=== PATIENT | female | born 1995 | race African-American/Black ===

== ENCOUNTER → 2017-06-09 | Outpatient (CLI) | payer OTHER ==
--- NOTE | 2017-06-09 19:31 | DIAGNOSTIC IMAGING REPORT ---
ULTRASOUND LEFT LOWER EXTREMITY VENOUS CLINICAL HISTORY: Elevated d-dimer. Left ankle pain. COMPARISON STUDY: No priors. TECHNIQUE: Real-time, grayscale, and color Doppler sonography of the deep veins of the left lower extremity was performed from the inguinal crease to the calf. Compression and augmentation were utilized. FINDINGS: There is no sonographic evidence of deep venous thrombosis identified in the left lower extremity. The common femoral, superficial femoral, and popliteal veins are patent and normally compressible. The greater saphenous vein and the profunda femoris vein at the junction with the common femoral vein are clear. The visualized calf veins are patent. IMPRESSION: There is no sonographic evidence of deep venous thrombosis identified in the left lower extremity. Electronically signed by: Moreno Moreno M.D. 06/09/2017 7:30 PM Dictated Date/Time: 06/09/2017 7:30 PM
== END | disposition home or self-care (01) ==
LOC: C.ULTR 19:07
PROVIDERS: ATTEND Family Medicine
DX: M25.572 Pain in left ankle and joints of left foot (principal)

== ENCOUNTER → 2017-06-09 | Outpatient (CLI) | payer OTHER ==
--- NOTE | 2017-06-09 16:43 | DIAGNOSTIC IMAGING REPORT ---
LEFT ANKLE MIN 3 VIEWS ROUTINE HISTORY: 22 years-old Female PAIN IN L ANKLE AND JOINTS COMPARISON: None available TECHNIQUE: 3 views of the left ankle FINDINGS: There is moderate soft tissue swelling about the ankle. There is a punctate radiodensity noted inferior to the distal fibula. No acute fracture or dislocation is otherwise seen. No significant degenerative changes. There is a small joint effusion. IMPRESSION: 1. Punctate radiodensity adjacent to the inferior fibula may reflect acute avulsion fracture or accessory ossicle with associated moderate soft tissue swelling. 2. The bones are otherwise intact. The above report was generated using voice recognition software. It may contain grammatical, syntax or spelling errors. Electronically signed by: Rafat Desouza M.D. 06/09/2017 4:42 PM Dictated Date/Time: 06/09/2017 4:40 PM
[2017-06-09 17:23] LABS: BASO % 0.4 %; BASO ABS # 0.02 K/uL (0-0.2); COMPLETE YES; HEMATOCRIT 37.7 % (37-47); LYMPH % 39.6 %; LYMPH ABS # 2.06 K/uL (1.2-3.4); MEAN CELL VOLUME 91.5 fL (80-100); MEAN CORPUSCULAR HEMOGLOBIN 31.1 pg (25-34); MEAN PLATELET VOLUME 10.5 fL (7.4-10.4); MONO % 7.3 %; NEUT % 51.7 %; PLATELET COUNT 193 K/uL (130-400); RED BLOOD COUNT 4.12 M/uL (4.2-5.4)
[2017-06-09 17:51] LABS: ALT/SGPT 22 U/L (12-78); AST/SGOT 17 U/L (15-37); BLOOD UREA NITROGEN 7 mg/dl (7-18); BUN/CREATININE RATIO 8.8 (10-20); CALCIUM 9.2 mg/dl (8.5-10.1); CARBON DIOXIDE 27 mmol/L (21-32); CHLORIDE 108 mmol/L (98-107); CREATININE 0.83 mg/dl (0.60-1.20); GLUCOSE 85 mg/dl (70-99); POTASSIUM 3.7 mmol/L (3.5-5.1); SODIUM 141 mmol/L (136-145)
[2017-06-09 17:54] LABS: ALKALINE PHOSPHATASE 53 U/L (45-117)
== END | disposition home or self-care (01) ==
LOC: C.RAD1850 16:19
PROVIDERS: ATTEND Family Medicine
DX: M25.572 Pain in left ankle and joints of left foot (principal)